=== PATIENT | male | born 2000 | race Caucasian/White ===

== ENCOUNTER 2019-07-08 17:36 | Emergency (ER) | payer OTHER ==
[2019-07-08 18:07] LABS: BASO # 0.1 10^3/uL (0.0-0.2); BASO % 0.7 % (0.0-1.0); EOS # 0.1 10^3/uL (0.0-0.5); EOS % 0.8 % (0.0-3.0); HEMATOCRIT 45.1 % (42.0-52.0); HEMOGLOBIN 15.4 g/dl (13.5-17.5); LYMPH # 2.2 10^3/uL (1.5-5.0); LYMPH % 24.4 % (24.0-44.0); MEAN CORPUSCULAR HEMOGLOBIN 29.8 pg (27.0-33.0); MEAN CORPUSCULAR HGB CONC 34.1 g/dl (32.0-36.5); MEAN CORPUSCULAR VOLUME 87.2 fl (80.0-96.0); MONO # 0.8 10^3/uL (0.0-0.8); MONO % 8.7 % (0.0-5.0); NEUTROPHILS # 5.9 10^3/uL (1.5-8.5); NEUTROPHILS % 65.1 % (36.0-66.0); PLATELET COUNT, AUTOMATED 209 10^3/uL (150-450); RED BLOOD COUNT 5.17 10^6/uL (4.30-6.10)
[2019-07-08 18:27] LABS: ALBUMIN 4.7 GM/DL (3.2-5.2); ALT/SGPT 43 U/L (12-78); AMYLASE 41 U/L (25-115); BILIRUBIN,DIRECT 0.2 MG/DL (0.0-0.2); BILIRUBIN,TOTAL 0.5 MG/DL (0.2-1.0); BLOOD UREA NITROGEN 23 MG/DL (7-18); CALCIUM LEVEL 9.6 MG/DL (8.5-10.1); CARBON DIOXIDE LEVEL 29 MEQ/L (21-32); CHLORIDE LEVEL 106 MEQ/L (98-107); CREATININE FOR GFR 1.11 MG/DL (0.70-1.30); GLUCOSE, FASTING 89 MG/DL (70-100); LIPASE 91 U/L (73-393); POTASSIUM SERUM 3.6 MEQ/L (3.5-5.1); SODIUM LEVEL 141 MEQ/L (136-145); TOTAL PROTEIN 7.3 GM/DL (6.4-8.2)
--- NOTE | 2019-07-08 18:30 | REPVR ---
PROCEDURE INFORMATION: Exam: CT Abdomen And Pelvis Without Contrast Exam date and time: 07/08/2019 5:53 PM Age: 18 years old Clinical indication: Abdominal pain; Additional info: R/O stone TECHNIQUE: Imaging protocol: Computed tomography of the abdomen and pelvis without contrast. Radiation optimization: All CT scans at this facility use at least one of these dose optimization techniques: automated exposure control; mA and/or kV adjustment per patient size (includes targeted exams where dose is matched to clinical indication); or iterative reconstruction. COMPARISON: No relevant prior studies available. FINDINGS: Liver: Normal. No mass. Gallbladder and bile ducts: Normal. No calcified stones. No ductal dilation. Pancreas: Normal. No ductal dilation. Spleen: Borderline splenomegaly. Adrenals: Normal. No mass. Kidneys and ureters: There is a 3 mm. obstructive ureteral calculus located proximal right ureter resulting in moderate proximal hydroureteronephrosis. There is no significant periureteral and perinephric stranding. No urinoma demonstrated. Stomach and bowel: Unremarkable. No obstruction. No mucosal thickening. Appendix: No evidence of appendicitis. Intraperitoneal space: Unremarkable. No free air. No significant fluid collection. Vasculature: Unremarkable. No abdominal aortic aneurysm. Lymph nodes: Unremarkable. No enlarged lymph nodes. Bladder: Unremarkable as visualized. Reproductive: Unremarkable as visualized. Bones/joints: Unremarkable. No acute fracture. Soft tissues: Unremarkable. Other findings: Shallow levoscoliosis which may be positional. IMPRESSION: There is a 3 mm. obstructive ureteral calculus located proximal right ureter resulting in moderate proximal hydroureteronephrosis. There is no significant periureteral and perinephric stranding. No urinoma demonstrated. Electronically signed by: Akbar Nix On 07/08/2019 18:29:37 PM
[2019-07-08] MEDS ORDERED: KETO10TAB PO (18:36)
[2019-07-08 20:32] VITALS: BP 130/59
[2019-07-09] MEDS ORDERED: FLOM0.4C39 PO (23:54)
[2019-07-09] MEDS ORDERED: PERC5TAB12 PO (23:54)
[2019-07-09] MEDS ORDERED: KEFL500C17 PO (23:54)
[2019-07-09] MEDS ORDERED: ONDA4TAB6 PO (23:54)
== END 2019-07-08 20:36 | disposition home or self-care (01) ==
LOC: M ED 17:36 → EDBD 17:36 → M ED 20:36
DX: N20.1 Calculus of ureter (principal); Z87.891 Personal history of nicotine dependence; Z87.442 Personal history of urinary calculi

== ENCOUNTER 2019-07-09 21:56 | Emergency (ER) | payer OTHER ==
[~2019-07-09] VITALS: Ht 182.9 cm; Wt 80.0 kg
[~2019-07-09 21:56] MED LIST: KETO10TAB PO
[2019-07-09] MEDS ORDERED: NS 1,000 ML IV ONE (22:30)
[2019-07-09] MEDS ORDERED: TAMSULOSIN 0.4 MG CAP PO ONE (22:30)
[2019-07-09 23:31] LABS: BASO % 0.3 % (0.0-1.0); EOS # 0.1 10^3/uL (0.0-0.5); EOS % 0.5 % (0.0-3.0); HEMATOCRIT 41.7 % (42.0-52.0); HEMOGLOBIN 13.9 g/dl (13.5-17.5); LYMPH # 1.1 10^3/uL (1.5-5.0); MEAN CORPUSCULAR HEMOGLOBIN 29.7 pg (27.0-33.0); MEAN CORPUSCULAR HGB CONC 33.3 g/dl (32.0-36.5); MEAN CORPUSCULAR VOLUME 89.1 fl (80.0-96.0); MONO # 0.7 10^3/uL (0.0-0.8); MONO % 5.9 % (0.0-5.0); NEUTROPHILS # 10.4 10^3/uL (1.5-8.5); NEUTROPHILS % 83.9 % (36.0-66.0); PLATELET COUNT, AUTOMATED 196 10^3/uL (150-450); RED BLOOD COUNT 4.68 10^6/uL (4.30-6.10); WHITE BLOOD COUNT 12.4 10^3/uL (4.0-10.0)
--- NOTE | 2019-07-09 23:34 | REPVR ---
PROCEDURE INFORMATION: Exam: US Retroperitoneal Limited, Kidneys Exam date and time: 07/09/2019 10:57 PM Age: 18 years old Clinical indication: Abdominal pain; Flank; Right; Additional info: Know ureteral calc, eval for worsening hydro TECHNIQUE: Imaging protocol: Real-time ultrasound of the retroperitoneum with image documentation. Examination was focused on the kidneys. COMPARISON: CT ABD PELVIS W/O CONTRAST 07/08/2019 5:51 PM FINDINGS: Right kidney: 12.1 cm in length. No stones. Mild hydronephrosis. Left kidney: 11.4 cm in length No stones. No hydronephrosis. Bladder: Grossly unremarkable. Bilateral ureteral jets identified. IMPRESSION: Mild right-sided hydronephrosis. Electronically signed by: Walker Sow On 07/09/2019 23:34:25 PM
[2019-07-09] MEDS ORDERED: CEPHALEXIN 500 MG CAP PO ONE (23:45)
[2019-07-09 23:49] LABS: BLOOD UREA NITROGEN 20 MG/DL (7-18); CALCIUM LEVEL 8.7 MG/DL (8.5-10.1); CARBON DIOXIDE LEVEL 28 MEQ/L (21-32); CHLORIDE LEVEL 110 MEQ/L (98-107); CREATININE FOR GFR 0.98 MG/DL (0.70-1.30); GLUCOSE, FASTING 103 MG/DL (70-100); POTASSIUM SERUM 3.9 MEQ/L (3.5-5.1); SODIUM LEVEL 143 MEQ/L (136-145)
[2019-07-09] MEDS ORDERED: FLOM0.4C39 PO (23:54)
[2019-07-09] MEDS ORDERED: ONDA4TAB6 PO (23:54)
[2019-07-09] MEDS ORDERED: PERC5TAB12 PO (23:54)
[2019-07-09] MEDS ORDERED: KEFL500C17 PO (23:54)
[2019-07-10] MEDS ORDERED: PERCOCET 5MG/325MG TAB PO ONE
[2019-07-10 00:20] VITALS: BP 108/53
== END 2019-07-10 00:24 | disposition home or self-care (01) ==
LOC: M ED 21:56
DX: N20.1 Calculus of ureter (principal); Z87.442 Personal history of urinary calculi

== ENCOUNTER → 2019-08-12 | Outpatient (REF) | payer OTHER ==
[~2019-08-12] MED LIST changes: +FLOM0.4C39 PO; +KEFL500C17 PO; +ONDA4TAB6 PO; +PERC5TAB12 PO
[2019-08-12 13:22] LABS: APPEARANCE, URINE CLEAR (CLEAR); BACTERIA, URINE AUTO NEGATIVE (NEGATIVE); BILIRUBIN, URINE AUTO NEGATIVE (NEGATIVE); BLOOD, URINE BLOOD NEGATIVE (NEGATIVE); COLOR, URINE STRAW (YELLOW); GLUCOSE, URINE (UA) AUTO NEGATIVE (NEGATIVE); KETONE, URINE AUTO NEGATIVE (NEGATIVE); LEUKOCYTE ESTERASE, URINE AUTO NEGATIVE (NEGATIVE); MUCUS, URINE SMALL (NEGATIVE); NITRITE, URINE AUTO NEGATIVE (NEGATIVE); PROTEIN, URINE AUTO NEGATIVE (NEGATIVE); RBC, URINE AUTO 0 /HPF (0-3); SQUAMOUS EPITHELIAL CELL UR AU 0 /HPF (0-6); UROBILINOGEN, URINE AUTO 0.2 mg/dL (0.0-2.0); WBC, URINE AUTO 1 /HPF (0-3)
== END ==
LOC: M SMT 13:04
PROVIDERS: ATTEND Nurse Practitioner Women's Health
DX: N13.2 Hydronephrosis with renal and ureteral calculous obstruction (principal)
CPT/HCPCS: 81001; 87086; G0463

== ENCOUNTER → 2019-12-09 | Outpatient (CLI) | payer OTHER ==
[~2019-12-09] MED LIST changes: +ISOVUE-300 61% 50ML VIAL As Ordered ONE; +ISOVUE-370 76% 100ML VIAL As Ordered ONE; +PROHANCE 279.3MG/ML 5ML VIAL As Ordered ONE
--- NOTE | 2020-01-28 10:47 | REP ---
LEFT HIP ARTHROGRAM The procedure was performed under the direct supervision of Dr. Olvera. The benefits and risks including, but not limited to pain, infection, bleeding, and anaphylaxis were explained to the patient and informed consent was obtained. PROCEDURE: The left femoral neck was localized using fluoroscopic guidance. The skin was prepped and draped in a sterile fashion. A 1% Lidocaine was used as a local anesthetic. Using fluoroscopic guidance, a 22-gauge spinal needle was inserted and advanced to the femoral neck and 0.5 mL of IsoView 300 was injected to verify placement. Eleven mL of a solution containing 20 mL of sterile saline and 0.15 mL of ProHance was injected. The needle was removed and the patient was taken to MRI for post-procedural imaging. The patient tolerated the procedure well and there were no immediate complications. Less than 6 seconds of fluoroscopy time was utilized for this procedure. OTTO
--- NOTE | 2020-01-28 10:48 | REP ---
MR ARTHROGRAM OF THE LEFT HIP HISTORY: Pain for one year. TECHNIQUE: Multiple sequences obtained in the axial, coronal, and sagittal planes prior to and following arthrogram procedure of the left hip. Note is made of diffuse bone marrow edema involving the left pubis extending into the superior and inferior pubic rami consistent with occult stress fracture. There is no abnormal bone marrow signal in the proximal left femur with no other evidence of occult fracture or avascular necrosis. There is no evidence of a labral tear. There is no paralabral cyst. There is no joint effusion. Surrounding soft tissue structures demonstrate no abnormal signal. Visualized intrapelvic structures are unremarkable. IMPRESSION: Diffuse marrow edema involving the left pubis extending into the left superior and inferior pubic rami. Findings are most consistent with an occult stress fracture. No labral tear or other abnormality of the left hip. MTDD
== END ==
LOC: M RADPRO 07:26
PROVIDERS: ATTEND Physician Assistant
DX: M89.8X8 Other specified disorders of bone, other site (principal)
CPT/HCPCS: 27093; 73723; 77002; A9576; Q9967

== ENCOUNTER → 2020-10-18 | Outpatient (CLI) | payer OTHER ==
[~2020-10-18] MED LIST changes: -ISOVUE-370 76% 100ML VIAL As Ordered ONE; +LIDOCAINE 1% MDV 20ML VIAL As Ordered ONE; -PROHANCE 279.3MG/ML 5ML VIAL As Ordered ONE; +TRIAMCINOLONE ACETONIDE SUSP 40 MG/ML VIAL (J3301) As Ordered ONE
--- NOTE | 2020-10-18 17:18 | REP ---
INDICATION: LEFT HIP PAIN. COMPARISON: None TECHNIQUE: The procedure was performed by FRANCISCA Day, under the direct supervision of Dr. Spring. The benefits and risks of the procedure were explained to the patient, and an informed consent was obtained. Directly prior to the start of the procedure, a formal time-out was completed in the procedure room. The left femoral neck joint space was localized using fluoroscopic guidance. The skin was prepped and draped in a sterile fashion. Approximately 5 mL of 1% Lidocaine 10 mg/ml was used as a local anesthetic. Using fluoroscopic guidance, a #22 gauge spinal needle was inserted and advanced into the left femoral neck joint space. Approximately 1 mL of Isovue 300 was injected to verify placement. Ten ML of a solution containing 9 mL 1% lidocaine 10 mg/ml and 1 mL Kenalog 40 milligrams/milliliter was injected into the joint space. The needle was removed and hemostasis was achieved. FINDINGS: The patient tolerated the procedure well and there were no immediate complications. IMPRESSION: 1. Fluoroscopically guided left hip intra-articular pain injection. 0.1 minutes of fluoroscopy time was utilized for this procedure. Some fluoroscopic images are performed with last image hold technology. These images require no additional radiation. <Electronically signed by Minerva Leger > 10/18/20 1510 <Electronically signed by Mikey Spring > 10/18/20 [id number]
== END ==
LOC: M RADPRO 13:41
PROVIDERS: ATTEND Student in an Organized Health Care Education/Training Program
DX: M25.552 Pain in left hip (principal)
CPT/HCPCS: 20610; 77002; J3301; Q9967